=== PATIENT | female | born 1990 | race Caucasian/White ===

== ENCOUNTER 2017-12-30 14:16 | Observation (INO) | payer MEDICAID ==
[~2017-12-30] VITALS: Ht 165.1 cm; Wt 92.0 kg
[2017-12-30] MEDS ORDERED: LACTATED RINGERS 1,000 ML IV SCH (14:21)
[2017-12-30] MEDS ORDERED: CEFAZOLIN PMX 1GM/50ML IVPB ONE (14:30)
[2017-12-30] MEDS ORDERED: CEFAZOLIN PMX 1GM/50ML 50 ML IV ONE (15:00)
[2017-12-30] MEDS ORDERED: FENTANYL PF 100 MCG/2ML ONE (15:14)
[2017-12-30 15:33] LABS: BASOPHILS # (AUTO) 0.02 x10^3/uL (0-0.1); BASOPHILS % (AUTO) 0 % (0-1); EOSINOPHILS # (AUTO) 0.26 x10^3/uL (0-0.4); EOSINOPHILS % (AUTO) 2 % (1-7); LYMPHOCYTES # (AUTO) 2.55 x10^3/uL (1-3.4); LYMPHOCYTES % (AUTO) 21 % (22-44); MD NO; MEAN CORPUSCULAR HEMOGLOBIN 27.2 pg (27.0-34.8); MEAN CORPUSCULAR HGB CONC 33.4 g/dL (32.4-35.8); MEAN CORPUSCULAR VOLUME 81.6 fL (80-100); MEAN PLATELET VOLUME 8.4 fL (7.4-10.4); MONOCYTES # (AUTO) 0.57 x10^3/uL (0.2-0.8); MONOCYTES % (AUTO) 5 % (2-9); NEUTROPHILS # (AUTO) 8.55 x10^3/uL (1.8-6.8); NEUTROPHILS % (AUTO) 72 % (42-75); PLATELET COUNT 253 x10^3/uL (130-400); RED BLOOD COUNT 4.69 x10^6/uL (3.82-5.3); RED CELL DISTRIBUTION WIDTH 13.5 % (9.6-15.2)
[2017-12-30] MEDS ORDERED: CEFAZOLIN 1,000 MG ONE (15:56)
[2017-12-30] MEDS ORDERED: SODIUM CHLORIDE 0.9% PF 10ML ONE ×2 (15:57)
[2017-12-30] MEDS ORDERED: ONDANSETRON 2MG/ML, 2ML ONE (18:03)
[2017-12-30] MEDS ORDERED: ONDANSETRON 2MG/ML, 2ML IVPush ONE (18:30)
[2017-12-30 19:25] VITALS: BP 104/53
== END 2017-12-30 21:30 | disposition home or self-care (01) ==
LOC: LDOP 14:16 → LDIP 14:21
PROVIDERS: ADMIT Obstetrics & Gynecology Maternal & Fetal Medicine; ATTEND Obstetrics & Gynecology Maternal & Fetal Medicine
DX: O26.872 Cervical shortening, second trimester (principal); O26.612 Liver and biliary tract disorders in pregnancy, second trimester; Z3A.20 20 weeks gestation of pregnancy
CPT/HCPCS: 36415; 59320; 85025; 96374; G0378; J0690; J2405; J3010; J7120; 96360; 96361